=== PATIENT | female | born 1995 | race Caucasian/White ===

== ENCOUNTER → 2021-02-26 | Outpatient (CLI) | payer SELFPAY ==
[2021-02-26 10:26] LABS: WHITE BLOOD COUNT 9.4 10^3/uL (4.3-11.0)
[2021-02-26 10:27] LABS: MEAN PLATELET VOLUME 12.2 FL (7.4-10.4)
== END ==
LOC: LAB FS 09:45
PROVIDERS: ATTEND Family Medicine
DX: Z34.91 Encounter for supervision of normal pregnancy, unspecified, first trimester (principal); Z3A.00 Weeks of gestation of pregnancy not specified
CPT/HCPCS: 36415; 85027; 86703; 86762; 86780; 86850; 86900; 86901; 87088; 87340

== ENCOUNTER → 2021-03-26 | Outpatient (CLI) | LOC: FS 15:02 → MERGE 15:02 | PROVIDERS: ATTEND Family Medicine | DX: Z34.91 Encounter for supervision of normal pregnancy, unspecified, first trimester (principal); Z3A.00 Weeks of gestation of pregnancy not specified | CPT/HCPCS: 87491; 87591 ==

== ENCOUNTER → 2021-04-23 | Outpatient (CLI) | payer MEDICAID | LOC: LAB FS 11:06 | PROVIDERS: ATTEND Family Medicine | DX: Z34.91 Encounter for supervision of normal pregnancy, unspecified, first trimester (principal); Z3A.00 Weeks of gestation of pregnancy not specified | CPT/HCPCS: 36415; 82105; 82677; 84702; 86336 ==

== ENCOUNTER → 2021-05-24 | Outpatient (CLI) | payer MEDICAID ==
--- NOTE | 2021-05-24 16:23 | Diagnostic Imaging Report ---
INDICATION: survey. TECHNIQUE: Multiple real-time grayscale images were obtained over the gravid uterus. COMPARISON: None FINDINGS: Pierce viable IUP is in breech position. The placenta is anterior with no abruption or previa. heart rate at 160 BPM. The nondilated cervix is a normal 4.3 cm in length with the tip of the placenta separable from the closed os by 6.7 cm. The anatomical survey was normal. There was no pathological finding. The measurements correlate with an age 21 weeks 0 day with estimated sonographic date of delivery of 10/04/2021. LMP percentile is 34%. Biometrical measurements are as follows: Biparietal 4.98 cm, age 21 weeks 1 days. Head circumference 18.49 cm, age 20 weeks 6 days. Abdominal circumference 16.35 cm, age 21 weeks 3 days. Femur length 3.32 cm, age 20 weeks 3 days. Sonographic estimate age: 21 weeks 0 days. Sonographic estimated date of delivery: 10/04/2021. Estimated Weight: 388 gm (+/- 57 gm). LMP percentile: 34%. heart rate: 160 beats per minute. number: 1 of 1. IMPRESSION: Pierce viable IUP measuring 21 weeks 1 day in breech position with no pathological finding identified. Dictated by: Dictated on workstation # [id number]
== END ==
LOC: RAD FS 15:09
PROVIDERS: ATTEND Family Medicine
DX: Z34.92 Encounter for supervision of normal pregnancy, unspecified, second trimester (principal); Z3A.21 21 weeks gestation of pregnancy
CPT/HCPCS: 76805